=== PATIENT | male | born 1985 | race Caucasian/White ===

== ENCOUNTER 2018-09-05 07:04 | Day surgery (SDC) | payer BC ==
[~2018-09-05] VITALS: Ht 177.8 cm; Wt 112.5 kg
[~2018-09-05 07:04] MED LIST: BL MAGNESIUM250 MG PO; DIPHENHYDRAM25 MG PO; POTASSIUM99 MG PO
[2018-09-05] MEDS ORDERED: IBUPROFEN600 MG PO (09:19)
[2018-09-05 09:42] VITALS: BP 129/75
== END 2018-09-05 09:55 | disposition home or self-care (01) | DRG 572 ==
LOC: ORM 07:04
PROVIDERS: ATTEND Surgery
PROC: 0JBD0ZZ Excision of Right Upper Arm Subcutaneous Tissue and Fascia, Open Approach (ICD-10-PCS; principal; 2018-09-05)
DX: D17.21 Benign lipomatous neoplasm of skin and subcutaneous tissue of right arm (principal)